=== PATIENT | male | born 1955 | race African-American/Black ===

== ENCOUNTER 2023-05-07 18:42 | Inpatient (IN) | payer MEDICARE, BC ==
[2023-05-07 19:55] LABS: #Eosinphils 0.1 thou/uL (0.0-0.7); #Monocytes 0.8 thou/uL (0.11-0.59); #Neutrophils 6.1 thou/uL (1.40-6.50); %Basophils 0.2 % (0.0-1.0); %Eosinophils 1.6 % (0.0-10.0); %Lymphocytes 13.3 % (21.0-51.0); %Monocytes 9.8 % (0.0-10.0); %Neutrophils 74.7 % (42.0-75.0); Hematocrit 39.7 % (42.0-52.0); Hemoglobin 13.4 g/dL (14.0-18.0); Mean Corpuscular HGB CONC 33.8 g/dL (32.0-36.0); Mean Corpuscular Hemoglobin 28.3 pg (27.0-31.0); Mean Corpuscular Volume 83.9 fl (78.0-98.0); Mean Platelet Volume 9.2 fL (7.4-10.4); Platelet Count 326 10x3/uL (130-400); RBC Distribution Width 13.3 % (11.5-14.5); Red Blood Cell (RBC) Count 4.73 mill/uL (4.70-6.10); White Blood Cell (WBC) Count 8.2 10x3/uL (4.8-10.8)
[2023-05-07 20:14] LABS: INR-International Normal Ratio 1.3; Prothrombin Time 17.2 sec (12.0-14.7)
[2023-05-07 20:17] LABS: ALT (SGPT) 27 U/L (8-55); AST (SGOT) 14 U/L (5-34); Albumin 3.6 g/dL (3.4-4.8); Alkaline Phosphatase 77 U/L (40-110); Anion Gap 15 mmol/L (10-20); BUN (Urea Nitrogen) 15 mg/dL (8.4-25.7); Bilirubin, Total 1.3 mg/dL (0.2-1.2); Calc. Creatinine Clearance 0 mL/min (70-130); Calcium 9.4 mg/dL (7.8-10.44); Carbon Dioxide 21 mmol/L (23-31); Chloride 105 mmol/L (98-107); Estimated GFR 55; Globulin 3.1 g/dL (2.4-3.5); Glucose 104 mg/dL (80-115); Potassium 3.7 mmol/L (3.5-5.1); Protein, Total 6.7 g/dL (5.8-8.1); Sodium 137 mmol/L (136-145)
[2023-05-07 20:22] LABS: Troponin I 0.042 ng/mL (< 0.028)
[2023-05-07 20:29] LABS: PTT 180.1 sec (22.9-36.1)
[2023-05-07] MEDS ORDERED: Acetaminophen 325 MG TAB PO PRN (21:16)
[2023-05-07 23:01] VITALS: BMI 34.4
[2023-05-07 23:32] LABS: Troponin I 0.058 ng/mL (< 0.028)
[2023-05-08 03:28] LABS: #Eosinphils 0.1 thou/uL (0.0-0.7); #Monocytes 0.8 thou/uL (0.11-0.59); #Neutrophils 5.9 thou/uL (1.40-6.50); %Basophils 0.2 % (0.0-1.0); %Eosinophils 0.7 % (0.0-10.0); %Lymphocytes 15.1 % (21.0-51.0); %Monocytes 10.4 % (0.0-10.0); %Neutrophils 73.2 % (42.0-75.0); Hematocrit 41.1 % (42.0-52.0); Hemoglobin 13.8 g/dL (14.0-18.0); Mean Corpuscular HGB CONC 33.6 g/dL (32.0-36.0); Mean Corpuscular Hemoglobin 28.5 pg (27.0-31.0); Mean Corpuscular Volume 84.7 fl (78.0-98.0); Mean Platelet Volume 9.9 fL (7.4-10.4); Platelet Count 342 10x3/uL (130-400); RBC Distribution Width 13.4 % (11.5-14.5); Red Blood Cell (RBC) Count 4.85 mill/uL (4.70-6.10); White Blood Cell (WBC) Count 8.1 10x3/uL (4.8-10.8)
[2023-05-08 03:55] LABS: Anion Gap 13 mmol/L (10-20); BUN (Urea Nitrogen) 14 mg/dL (8.4-25.7); Calc. Creatinine Clearance 89 mL/min (70-130); Calcium 9.3 mg/dL (7.8-10.44); Carbon Dioxide 24 mmol/L (23-31); Chloride 105 mmol/L (98-107); Estimated GFR 59; Glucose 94 mg/dL (80-115); Potassium 3.9 mmol/L (3.5-5.1); Sodium 138 mmol/L (136-145)
[2023-05-08 04:01] LABS: Troponin I 0.039 ng/mL (< 0.028)
[2023-05-08] MEDS: Atorvastatin Calcium 40 MG TAB PO SCH (08:39)
[2023-05-08] MEDS: Sacubitril 24MG/Valsartan 26 MG TAB PO SCH ×2 (08:39→20:12)
[2023-05-08] MEDS: TICAGRELOR 90 MG TABLET PO SCH ×2 (08:39→20:12)
[2023-05-08] MEDS: Carvedilol 3.125 MG TAB PO SCH ×2 (08:39→16:49)
[2023-05-08] MEDS ORDERED: Hydrochlorothiazide 25 MG TAB PO SCH (09:00)
[2023-05-08] MEDS: Apixaban 5 MG TAB PO SCH (20:12)
[2023-05-08] MEDS ORDERED: Tamsulosin HCl 0.4 MG CAP PO SCH (21:00)
[2023-05-08] MEDS ORDERED: Pregabalin 75 MG CAP PO SCH (21:00)
[2023-05-09] MEDS: Atorvastatin Calcium 40 MG TAB PO SCH (09:38)
[2023-05-09] MEDS: TICAGRELOR 90 MG TABLET PO SCH (09:38)
[2023-05-09] MEDS: Carvedilol 3.125 MG TAB PO SCH (09:38)
[2023-05-09] MEDS: Apixaban 5 MG TAB PO SCH (09:38)
[2023-05-09] MEDS: Sacubitril 24MG/Valsartan 26 MG TAB PO SCH (09:38)
[2023-05-09 12:06] VITALS: BP 112/78; TEMP 98.4
== END 2023-05-09 15:50 | disposition home or self-care (01) | DRG 312 ==
LOC: SUATTDRO 18:42 → ERS 18:42 → 2SE 20:58 → OBSVTOIN 05-08 17:01
PROVIDERS: ADMIT Family Medicine; ATTEND Family Medicine
DX: I95.1 Orthostatic hypotension (principal); I13.0 Hypertensive heart and chronic kidney disease with heart failure and stage 1 through stage 4 chronic kidney disease, or unspecified chronic kidney disease; I50.22 Chronic systolic (congestive) heart failure; I23.6 Thrombosis of atrium, auricular appendage, and ventricle as current complications following acute myocardial infarction; E78.00 Pure hypercholesterolemia, unspecified; I25.5 Ischemic cardiomyopathy; N18.30 Chronic kidney disease, stage 3 unspecified; Z79.82 Long term (current) use of aspirin; Z79.899 Other long term (current) drug therapy; Z95.818 Presence of other cardiac implants and grafts; I25.10 Atherosclerotic heart disease of native coronary artery without angina pectoris; I25.2 Old myocardial infarction
CPT/HCPCS: 36415; 70450; 71045; 80048; 80053; 84484; 85025; 85610; 85730; 93005; 94760

== ENCOUNTER 2023-07-16 11:26 | Outpatient (CLI) | payer MEDICARE, BC ==
[2023-07-16 13:36] LABS: Anion Gap 16 mmol/L (10-20); BUN (Urea Nitrogen) 19 mg/dL (8.4-25.7); Calc. Creatinine Clearance 0 mL/min (70-130); Calcium 8.5 mg/dL (7.8-10.44); Carbon Dioxide 17 mmol/L (23-31); Chloride 110 mmol/L (98-107); Estimated GFR 54; Glucose 118 mg/dL (80-115); Potassium 4.6 mmol/L (3.5-5.1); Sodium 138 mmol/L (136-145)
== END 2023-07-16 11:27 | disposition home or self-care (01) ==
LOC: LABBT 11:26
PROVIDERS: ATTEND Internal Medicine Cardiovascular Disease
DX: Z01.818 Encounter for other preprocedural examination (principal); I25.10 Atherosclerotic heart disease of native coronary artery without angina pectoris
CPT/HCPCS: 80048; 93005; 93010

== ENCOUNTER → 2023-07-19 | Day surgery (SDC) | payer MEDICARE, BC ==
[2023-07-16 12:21] VITALS: BMI 30.4
[~2023-07-19] MED LIST: Heparin 10,000 UNITS/ 10 ML VIAL ONE; Lidocaine 1% (PF) 30 ML VIAL ONE; Midazolam HCl 2 mg/2 ml Vial ONE; Nitroglycerin 50 MG/250 ML BOT 0 ML ONE; Verapamil 5 MG/2 ML VIAL ONE; fentaNYL 50 mcg/mL 1 mL Vial ONE
[2023-07-19 07:39] LABS: #Eosinphils 0.2 thou/uL (0.0-0.7); #Monocytes 0.9 thou/uL (0.11-0.59); #Neutrophils 6.2 thou/uL (1.40-6.50); %Basophils 0.4 % (0.0-1.0); %Monocytes 10.5 % (0.0-10.0); %Neutrophils 76.9 % (42.0-75.0); Hematocrit 42.6 % (42.0-52.0); Hemoglobin 13.7 g/dL (14.0-18.0); Mean Corpuscular HGB CONC 32.2 g/dL (32.0-36.0); Mean Corpuscular Hemoglobin 27.3 pg (27.0-31.0); Mean Platelet Volume 9.4 fL (7.4-10.4); Platelet Count 305 10x3/uL (130-400); RBC Distribution Width 16.1 % (11.5-14.5); Red Blood Cell (RBC) Count 5.01 mill/uL (4.70-6.10); White Blood Cell (WBC) Count 8.1 10x3/uL (4.8-10.8)
[2023-07-19 07:56] LABS: INR-International Normal Ratio 1.7; Prothrombin Time 20.7 sec (12.0-14.7)
[2023-07-19 08:04] LABS: PTT 245.7 sec (22.9-36.1)
== END ==
LOC: SDC 06:11
PROVIDERS: ATTEND Internal Medicine Cardiovascular Disease
DX: I25.10 Atherosclerotic heart disease of native coronary artery without angina pectoris (principal); Z53.09 Procedure and treatment not carried out because of other contraindication
CPT/HCPCS: 85025; 85610; 85730; J1644; J2001; J2250; J3010

== ENCOUNTER 2023-07-20 05:54 | Day surgery (SDC) | payer MEDICARE, BC ==
[2023-07-19 13:50] VITALS: BMI 31.3
[2023-07-20] MEDS ORDERED: Verapamil 5 MG/2 ML VIAL ONE (06:35)
[2023-07-20] MEDS ORDERED: Nitroglycerin 50 MG/250 ML BOT 250 ML ONE (06:35)
[2023-07-20] MEDS ORDERED: Clopidogrel Bisulfate 75 MG TAB ONE (09:16)
[2023-07-20] MEDS ORDERED: Iopamidol 370 76% 100 ML VIAL ONE (10:35)
== END 2023-07-20 15:00 | disposition home or self-care (01) ==
LOC: CCL 05:54
PROVIDERS: ATTEND Internal Medicine Cardiovascular Disease
PROC: 4A023N7 Measurement of Cardiac Sampling and Pressure, Left Heart, Percutaneous Approach (ICD-10-PCS; principal; 2023-07-20)
PROC: B210YZZ Fluoroscopy of Single Coronary Artery using Other Contrast (ICD-10-PCS; 2023-07-20)
DX: I25.10 Atherosclerotic heart disease of native coronary artery without angina pectoris (principal); I10 Essential (primary) hypertension; N40.0 Benign prostatic hyperplasia without lower urinary tract symptoms; I21.9 Acute myocardial infarction, unspecified; E78.5 Hyperlipidemia, unspecified; I25.5 Ischemic cardiomyopathy; Z79.899 Other long term (current) drug therapy; Z79.82 Long term (current) use of aspirin; Z79.01 Long term (current) use of anticoagulants; Z87.891 Personal history of nicotine dependence; Z95.820 Peripheral vascular angioplasty status with implants and grafts
CPT/HCPCS: 85347 ×2; 93005; 93458; C9600; 92928; 99152; 99153; C1769; C1874; C1887; C1894; J1644; J2001; J2250; J3010; Q9967

== ENCOUNTER 2023-08-03 17:00 | Outpatient (CLI) | payer MEDICARE, BC | END 2023-08-03 17:01 | disposition home or self-care (01) | LOC: SLEEPLAB 17:00 | PROVIDERS: ATTEND Internal Medicine Cardiovascular Disease | DX: G47.33 Obstructive sleep apnea (adult) (pediatric) (principal); I11.0 Hypertensive heart disease with heart failure; I50.22 Chronic systolic (congestive) heart failure; I25.2 Old myocardial infarction; I25.10 Atherosclerotic heart disease of native coronary artery without angina pectoris | CPT/HCPCS: 95800 ==

== ENCOUNTER 2023-09-16 17:00 | Outpatient (CLI) | payer BC, MEDICARE | END 2023-09-16 17:01 | disposition home or self-care (01) | LOC: SLEEPLAB 17:00 | PROVIDERS: ATTEND Internal Medicine Cardiovascular Disease | DX: G47.33 Obstructive sleep apnea (adult) (pediatric) (principal); G47.31 Primary central sleep apnea | CPT/HCPCS: 95811 ==

== ENCOUNTER 2024-02-21 14:42 | Outpatient (CLI) | payer MEDICARE | END 2024-02-21 14:43 | disposition home or self-care (01) | LOC: BICCT 14:42 | PROVIDERS: ATTEND Urology | DX: N40.1 Benign prostatic hyperplasia with lower urinary tract symptoms (principal); N28.9 Disorder of kidney and ureter, unspecified; R82.71 Bacteriuria; R81 Glycosuria; R31.29 Other microscopic hematuria; N28.1 Cyst of kidney, acquired; K76.89 Other specified diseases of liver; D35.02 Benign neoplasm of left adrenal gland; K44.9 Diaphragmatic hernia without obstruction or gangrene; K80.20 Calculus of gallbladder without cholecystitis without obstruction | CPT/HCPCS: 74176 ==